=== PATIENT | male | born 1995 | race Caucasian/White ===

== ENCOUNTER 2019-04-29 10:11 | Emergency (ER) | payer OTHER ==
[~2019-04-29] VITALS: Ht 195.6 cm; Wt 90.7 kg
[2019-04-29 10:03] VITALS: BP 142/86
[2019-04-29] MEDS ORDERED: ZYRTEC10 MG ORAL (10:12)
--- NOTE | 2019-04-29 10:13 | Emergency Room Report ---
History of Present Illness General Chief Complaint: Flu Like Symptoms Source: Patient Present Illness HPI 23-year-old male with cough, congestion, patient reports that he was exposed to a COVID + patient yesterday, he states that he has now cough congestion no aggravating relieving factor severity is mild, constant patient also reports subjective fevers no shortness of breath no chest pain patient presents for evaluation COVID-19 risk:Contact w/high r: No COVID-19 risk:Travel to affect: No Has patient experienced vazquez: Yes Coronavirus symptoms experienc: Fever (T>100.4F or >38C), Cough, Runny Nose Allergies: Coded Allergies: No Known Allergies (Unverified , 04/29/19) Patient History Past Medical History: see triage record Reviewed Nursing Documentation: PMH: Agreed; PSxH: Agreed Nursing Documentation-PMH Past Medical History: No Stated History Review of Systems All Other Systems: negative except mentioned in HPI Physical Exam Vital Signs Date Time Temp Pulse Resp B/P (MAP) Pulse Ox O2 Delivery O2 Flow Rate FiO2 04/29/19 10:03 98.8 99 20 142/86 99 Room Air Sp02 EP Interpretation: reviewed, normal General Appearance: well appearing, no apparent distress, alert Head: normocephalic, atraumatic Eyes: bilateral eye PERRL, bilateral eye EOMI ENT: uvula midline, moist mucus membranes, nasal congestion Neck: supple, thyroid normal, supple/symm/no masses Respiratory: lungs clear, no respiratory distress, no retraction, no accessory muscle use Cardiovascular #1: normal peripheral pulses, regular rate, rhythm, no edema, no gallop, no murmur Gastrointestinal: non tender, soft, no guarding, no rebound Musculoskeletal: normal inspection Neurologic: alert, oriented x3 Psychiatric: mood/affect normal Skin: no rash, warm/dry Medical Decision Making Diagnostic Impression: Primary Impression: Upper respiratory infection Qualified Codes: J06.9 - Acute upper respiratory infection, unspecified ER Course 23-year-old male with presumptive CO VID Patient exposed to known COVID patient Patient counseled for social isolation x14 days continue wearing the mask Disposition Home with return precautions follow-up with PCP Last Vital Signs Date Time Temp Pulse Resp B/P (MAP) Pulse Ox O2 Delivery O2 Flow Rate FiO2 04/29/19 10:03 98.8 99 20 142/86 (104) 99 Room Air Disposition: HOME, SELF-CARE Condition: Stable Scripts Cetirizine Hcl* (ZYRTEC*) 10 Mg Tablet 10 MG ORAL DAILY PRN for congestion, #30 TAB 0 Refills Prov: Shemar Fischer MD 04/29/19 Referrals: [facility]. [facility] Patient Instructions: Upper Respiratory Infection, Adult, [id number] Additional Instructions: The patient was provided with discharge instructions, notified to follow-up with a primary care doctor and or specialist in the next 24-48 hours, and to return to the ED if they have worsening of their symptoms. Please note that this report is being documented using Automated [employer] technology. This can lead to erroneous entry secondary to incorrect interpretation by the dictating instrument. Please self isolate for 14 days until symptoms resolve. Please practice social isolation. Strongly recommend proper hand hygiene. Given the fact that you were exposed to COVID patient you most likely have it. Shemar Fischer MD Apr 29, 2019 10:13
[2019-04-29 10:25] VITALS: BP 135/86
== END 2019-04-29 10:25 | disposition home or self-care (01) ==
LOC: EMR 10:13
DX: J06.9 Acute upper respiratory infection, unspecified (principal); Z20.828 Contact with and (suspected) exposure to other viral communicable diseases
CPT/HCPCS: 99282